=== PATIENT | female | born 1980 | race Caucasian/White ===

== ENCOUNTER 2024-01-29 22:31 | Outpatient (CLI) | payer OTHER, SELFPAY | END 2024-01-29 22:32 | disposition home or self-care (01) | LOC: AMB 02-06 04:34 | PROVIDERS: PCP Family Medicine; Visit Provider Family Medicine | DX: T14.90XA Injury, unspecified, initial encounter (principal); V49.3XXA Car occupant (driver) (passenger) injured in unspecified nontraffic accident, initial encounter; Y92.410 Unspecified street and highway as the place of occurrence of the external cause ==